=== PATIENT | female | born 1985 | race Caucasian/White ===

== ENCOUNTER 2017-10-30 12:16 | Emergency (ER) | payer BC ==
--- NOTE | 2017-10-30 13:26 | UC ---
Throat Pain/Nasal Randy HPI - HPI Summary HPI Summary: Pt presents with 2.5 weeks of sinus pain/pressure/congestion. She finished a course of zpak yesterday, but has felt no relief and feels that her symptoms are getting worse. She says that she gets a sinus infection 2 or 3 times a year and has always gotten zpak in the past with good relief, but not this time. Denies fever, chills, SOB, chest pain, abdominal pain. - History of Current Complaint Stated Complaint: SINUS PAIN Time Seen by Provider: 10/30/17 13:25 Hx Obtained From: Patient Hx Last Menstrual Period: 07/31/14 Onset/Duration: Gradual Onset Severity: Mild Pain Intensity: 2 Pain Scale Used: 0-10 Numeric - Allergies/Home Medications Allergies/Adverse Reactions: Allergies Allergy/AdvReac Type Severity Reaction Status Date / Time Penicillins Allergy Hives/Diff. Verified 10/30/17 13:30 Breathing/I tching All Cillins Allergy Hives/Diff. Uncoded 10/30/17 13:30 Breathing/I tching Home Medications: Home Medications Azithromyxin DOMINGO (NF) [Z-Domingo (Zithromax) 250 mg tabs #6] 1 tab PO DAILY [History Confirmed 10/30/17] D-Methorphan/PE/Acetaminophen [Vicks Dayquil Liquid] 30 ml PO Q4HR PRN 10/30/17 [History Confirmed 10/30/17] Ibuprofen TAB* [Motrin TAB* 800 MG] 800 mg PO Q4HR PRN 10/30/17 [History Confirmed 10/30/17] PMH/Surg Hx/FS Hx/Imm Hx Previously Healthy: Yes - Surgical History Surgical History: None - Family History Known Family History: Positive: None - Social History Occupation: Employed Full-time Lives: With Family Alcohol Use: Weekly Substance Use Type: None Smoking Status (MU): Light Every Day Tobacco Smoker Type: Cigarettes, eCigarettes Amount Used/How Often: 1 pack per week Length of Time of Smoking/Using Tobacco: 5 years Have You Smoked in the Last Year: Yes Household Exposure Type: Cigarettes Review of Systems Constitutional: Negative Skin: Negative Eyes: Negative ENT: Nasal Discharge, Sinus Congestion, Sinus Pain/Tenderness Respiratory: Negative Cardiovascular: Negative Gastrointestinal: Negative All Other Systems Reviewed And Are Negative: Yes Physical Exam - Summary Physical Exam Summary: GENERAL: NAD. WDWN HEENT: NC/AT. Conjunctiva clear without inflammation or discharge. TMs intact , no bulging, erythema, or edema. Nasal mucosa mildly swollen and erythematous with clear discharge. TTP maxillary sinus. Posterior oropharynx without exudates , erythema, or tonsillar enlargement. Uvula midline. NECK: Supple without lymphadenopathy CHEST: CTAB. No r/r/w. No accessory muscle use. Breathing comfortably and in no distress. CV: RRR. Without m/r/g. Pulses intact. SKIN: No rash or erythema noted. NEURO: Alert. CN II-XII grossly intact. PSYCH: Age appropriate behavior. Triage Information Reviewed: Yes Throat Pain/Nasal Course/Dx - Course Course Of Treatment: Sinusitis - will try her with doxycycline for 1 week. If her symptoms persist beyond this, will likely need to see ENT for chronic sinusitis - Differential Dx/Diagnosis Provider Diagnoses: Sinusitis Discharge - Discharge Plan Condition: Stable Disposition: HOME Prescriptions: DOXYcycline CAP(*) [DOXYcycline 100MG CAP(*)] 100 mg PO BID #14 cap Patient Education Materials: Sinusitis (ED) Referrals: No Primary Care Phys,NOPCP [Primary Care Provider] - Additional Instructions: If you develop a fever, shortness of breath, chest pain, new or worsening symptoms - please call your PCP or go to the ED.
[2017-10-30 13:35] VITALS: BP 120/86
== END 2017-10-30 13:43 | disposition home or self-care (01) ==
LOC: UCEAST 12:16
DX: J32.9 Chronic sinusitis, unspecified (principal); Z88.0 Allergy status to penicillin; F17.210 Nicotine dependence, cigarettes, uncomplicated
CPT/HCPCS: 99202; G0463

== ENCOUNTER 2017-11-23 15:27 | Emergency (ER) | payer BC ==
[2017-11-23 16:01] VITALS: BP 131/65
--- NOTE | 2017-11-23 17:01 | UC ---
Epistaxis Nasal HPI - HPI Summary HPI Summary: Patient is a 32-year-old female with a history of chronic sinusitis worsening over this past 3-4 months presenting to the with chief complaint of bilateral maxillary sinus pressure, worse to the left side with radiation to the frontal sinuses causing a headache. Endorses bilateral anterior cervical lymphadenopathy. She has not taken any medications for relief. She states last sinus infection was treated with doxycycline and she finish her course 2 weeks ago. She was seen by Dr. Farris yesterday who noted everything looked okay. She states however, the symptoms of pressure to the left maxillary sinus and headache began overnight. Denies any fevers, sweats, chills. Denies any tearing from the eye. Denies any nasal discharge. - History of Current Complaint Chief Complaint: UCRespiratory Stated Complaint: FACIAL PAIN, AND SINUS COGESTION Time Seen by Provider: 11/23/17 16:15 Hx Obtained From: Patient Hx Last Menstrual Period: 2 weeks ?: No Onset/Duration: Sudden Onset Timing: Constant Severity Initially: Moderate Severity Currently: Moderate Pain Intensity: 9 Pain Scale Used: 0-10 Numeric Associated Signs And Symptoms: Positive: Sinus Pain - Allergies/Home Medications Allergies/Adverse Reactions: Allergies Allergy/AdvReac Type Severity Reaction Status Date / Time Penicillins Allergy Hives/Diff. Verified 11/23/17 15:55 Breathing/I tching All Cillins Allergy Hives/Diff. Uncoded 11/23/17 15:55 Breathing/I tching Home Medications: Home Medications Fluticasone NASAL SPRAY 50MCG* [Flonase NASAL SPRAY 50MCG*] 2 spray BOTH NARES DAILY 11/23/17 [History Confirmed 11/23/17] Oxymetazoline 0.05% NASAL SPR* [Afrin 0.05% NASAL SPRAY*] 1 spray NASAL Q12H PRN 11/23/17 [History Confirmed 11/23/17] Pseudoephedrine HCl [Sudafed 12 Hour] 120 mg PO Q12HR PRN 11/23/17 [History Confirmed 11/23/17] PMH/Surg Hx/FS Hx/Imm Hx Previously Healthy: Yes - Surgical History Surgical History: Yes Surgery Procedure, Year, and Place: Benign cyst removal - Family History Known Family History: Positive: None - Social History Occupation: Employed Full-time Lives: With Family Alcohol Use: Weekly Substance Use Type: None Smoking Status (MU): Light Every Day Tobacco Smoker Type: Cigarettes, eCigarettes Amount Used/How Often: 1/2 PPD Length of Time of Smoking/Using Tobacco: 5 years Have You Smoked in the Last Year: Yes Household Exposure Type: Cigarettes Review of Systems Constitutional: Negative Skin: Negative Eyes: Negative ENT: Nasal Discharge, Sinus Congestion, Sinus Pain/Tenderness Respiratory: Negative Cardiovascular: Negative Motor: Negative Neurovascular: Negative Neurological: Negative Psychological: Negative Is Patient Immunocompromised?: No All Other Systems Reviewed And Are Negative: Yes Physical Exam Triage Information Reviewed: Yes Appearance: Well-Appearing, Well-Nourished Vital Signs: Initial Vital Signs Temp 97.5 F 11/23/17 15:54 Pulse 72 11/23/17 15:54 Resp 18 11/23/17 15:54 BP 131/65 11/23/17 15:54 Pulse Ox 100 11/23/17 15:54 Eye Exam: Normal Eyes: Positive: Conjunctiva Clear ENT: Positive: Pharynx normal, Nasal congestion, Dental tenderness, Sinus tenderness, Uvula midline. Negative: Nasal drainage, TM bulging, TM dull, TM red, Tonsillar swelling, Tonsillar exudate, Hoarse voice Neck exam: Normal Neck: Positive: Supple, No Lymphadenopathy Respiratory Exam: Normal Respiratory: Positive: Chest non-tender, Lungs clear Cardiovascular Exam: Normal Cardiovascular: Positive: RRR Musculoskeletal Exam: Normal Musculoskeletal: Positive: Strength Intact Neurological: Positive: Alert Psychological: Positive: Normal Response To Family Skin Exam: Normal Epistaxis Nasal Course/Dx - Course Course Of Treatment: During the course of treatment, the patient is evaluated for acute on chronic sinusitis. Last antibiotic use was completed 2 weeks ago. She was on doxycycline. She states this it helps her symptoms and her symptoms had resolved. She is allergic to amoxicillin and has never taken Augmentin. Today she has sinus pressure and pain to the left maxillary sinus. Bilateral anterior cervical lymphadenopathy. She endorses headache. Symptoms are not better or worse with lying flat or sitting up. She has Flonase at home which she has been using regularly as well as saltwater rinses. Due to a potential for antibiotic resistant organisms due to recurrent sinusitis, patient will be placed on Levaquin 500 mg once daily 5 days. She is to follow- up with ENT. - Differential Dx/Diagnosis Provider Diagnoses: Sinusitis Discharge - Sign-Out/Discharge Documenting (check all that apply): Discharge - Discharge Plan Condition: Stable Disposition: HOME Prescriptions: Levofloxacin TAB* [Levaquin TAB*] 500 mg PO DAILY #5 tab Patient Education Materials: Sinusitis (ED) Referrals: Alexis Avila MD [Medical Doctor] - No Primary Care Phys,NOPCP [Primary Care Provider] - Additional Instructions: Please follow up with Dr. Austin Sims once daily x 5 days - Billing Disposition and Condition Condition: STABLE Disposition: HOME
== END 2017-11-23 17:05 | disposition home or self-care (01) ==
LOC: UCEAST 15:27
DX: J32.9 Chronic sinusitis, unspecified (principal); Z88.0 Allergy status to penicillin; F17.210 Nicotine dependence, cigarettes, uncomplicated
CPT/HCPCS: 99212; G0463

== ENCOUNTER 2018-01-17 16:39 | Emergency (ER) | payer SELFPAY ==
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
[2018-01-17 19:49] VITALS: BP 135/72
== END 2018-01-17 19:45 | disposition home or self-care (01) ==
LOC: UCEAST 16:39
DX: S06.0X9A Concussion with loss of consciousness of unspecified duration, initial encounter (principal); F07.81 Postconcussional syndrome; S40.022A Contusion of left upper arm, initial encounter; S81.811A Laceration without foreign body, right lower leg, initial encounter; V43.52XA Car driver injured in collision with other type car in traffic accident, initial encounter; Y93.89 Activity, other specified; Y92.9 Unspecified place or not applicable; F17.210 Nicotine dependence, cigarettes, uncomplicated; Z88.0 Allergy status to penicillin
CPT/HCPCS: 70450; 99212; G0463